=== PATIENT | female | born 1950 | race Caucasian/White ===

== ENCOUNTER → 2020-08-01 10:30 | Outpatient (CLI) | payer OTHER, SELFPAY ==
--- NOTE | ~2020-08-01 | DEXA_ITS ---
Bone Density Report Name: Sonya Acevedo Age: 69 Sex: Female Ethnicity: White Date of : 1950 Indication: postmenopausal; screening for osteoporosis; height loss; Referring Provider: KENDRA, TANISHA Study: Bone densitometry was performed. Exam Date: August 01, 2020 Accession number: [id number] Bone Density: Region BMD T-score Z-score Classification AP Spine (L1-L4) 0.958 -0.8 1.1 Normal Femoral Neck (Left) 0.671 -1.6 0.1 Osteopenia Total Hip (Left) 0.805 -1.1 0.2 Osteopenia Femoral Neck (Right) 0.574 -2.5 -0.8 Osteoporosis Total Hip (Right) 0.713 -1.9 -0.5 Osteopenia Total Hip Mean 0.759 -1.5 -0.2 Osteopenia World Health Organization criteria for BMD impression classify patients as: Normal (T-score at or above -1.0), Osteopenia (T-score between -1.0 and -2.5), or Osteoporosis (T-score at or below -2.5). 10-year Fracture Risk: FRAX not reported because: Some T-score for Spine Total or Hip Total or Femoral Neck at or below -2.5 Previous Exams: Region Exam Age BMD T-score BMD Change BMD Change Date g/cm2 vs Baseline vs Previous AP Spine(L1-L4) 08/01/2020 69 0.958 -0.8 -0.087* -0.087* 12/25/2007 57 1.046 0.0 Total Hip(Left) 08/01/2020 69 0.805 -1.1 -0.076* -0.076* 12/25/2007 57 0.881 -0.5 Total Hip(Right) 08/01/2020 69 0.713 -1.9 -0.142* -0.142* 12/25/2007 57 0.855 -0.7 *Denotes significance at 95% confidence level, LSC for AP Spine = 0.022 g/cm2, LSC for Total Hip = 0.027 g/cm2 Clinical Information Provided by Patient: Patient maximum height was 64 Menopause Age: 52 Does not regularly consume dairy products Drinks caffeinated beverages Onset of menses at age 14 Number of children 1 Impression: The patient has osteoporosis, based on the Right Femoral Neck T-score. The BMD for the AP Spine(L1-L4) decreased, changing by -0.087 since the last DXA exam. The BMD for the Total Hip(Left) decreased, changing by -0.076 since the last DXA exam. The BMD for the Total Hip(Right) decreased, changing by -0.142 since the last DXA exam. Discussion: INCREASED RISK OF FRACTURE. BONE DENSITY IS UNDESIRABLY LOW AT ONE OR MORE SKELETAL SITES, CONSISTENT WITH POSTMENOPAUSAL OSTEOPOROSIS. This patient's lowest T-score meets the World Health Organization's (WHO) criteria for osteoporosis at one or more sites (T-score -2.5 or below). In untreated patients, the risk of osteoporotic fracture inc
--- NOTE | ~2020-08-01 | MM_ITS ---
EXAMINATION: MM screening [facility] BI w des HISTORY: Screening TECHNIQUE: Craniocaudal and mediolateral oblique 3-D tomosynthesis images were obtained and synthetic 2-D images were generated. CAD analysis was submitted and interpreted. COMPARISON: Comparison to multiple prior studies sequentially, with oldest reviewed study dated 04/17. BREAST PARENCHYMAL COMPOSITION: There are scattered areas of fibroglandular density. FINDINGS: There is a cluster of calcifications in the upper outer quadrant of the left breast with as sociated tissue markers, consistent with site of previous benign stereotactic biopsy. No new masses, calcifications or architectural distortion are identified in either breast to suggest malignancy. IMPRESSION: 1. No mammographic evidence for malignancy. Tissue markers present in the upper outer quadrant of the left breast, consistent with previous benign biopsy. 2. Recommend routine screening mammography in one year. BI-RADS Category 2: Benign finding(s). Reviewed, dictated and finalized at location A. ONAL MARKETING DIRECTOR
== END ==
PROVIDERS: PCP Physician Assistant; Visit Provider Physician Assistant
DX: Z12.31 Encounter for screening mammogram for malignant neoplasm of breast (principal); Z78.0 Asymptomatic menopausal state; M85.852 Other specified disorders of bone density and structure, left thigh; M85.851 Other specified disorders of bone density and structure, right thigh; M81.0 Age-related osteoporosis without current pathological fracture
CPT/HCPCS: 77063; 77067; 77080

== ENCOUNTER → 2021-02-28 17:07 | Outpatient (CLI) | payer OTHER, SELFPAY ==
--- NOTE | ~2021-02-28 | XR_ITS ---
XR lumbar spine 2-3V DATE: 02/28/2021 18:44 INDICATION: Acute bilateral low back pain TECHNIQUE: AP, lateral, coned lateral lumbosacral views COMPARISON: 07/14/2015 lumbar spine FINDINGS: There is diffuse osteopenia. No fracture or bone destruction. Included lower thoracic and lumbar pedicles are intact. There is severe degenerative disc disease at L5-S1. There is moderate degenerative disease at L4-5. There is prominent degenerative change at the apophyseal joints in the mid and lower lumbar and lumbo sacral area with associated grade 1 anterolisthesis at L3-4 and L4-5. The sacroiliac joints appear normal. Status post cholecystectomy. There is a prominent amount of fecal material in the colon. IMPRESSION: Diffuse osteopenia Degenerative disc disease at L4-5 and particularly L5-S1 Prominent degenerative change at the apophyseal joints with associated grade 1 anterolisthesis at L3- 4 and L4-5 Reviewed, dictated and finalized at location A. IMPRESSION: Diffuse osteopenia Degenerative disc disease at L4-5 and particularly L5-S1 Prominent degenerative change at the apophyseal joints with associated grade 1 anterolisthesis at L3-4 and L4-5
== END ==
PROVIDERS: PCP Physician Assistant; Visit Provider Physician Assistant
DX: M54.5 Low back pain (principal); M85.88 Other specified disorders of bone density and structure, other site; M51.36 Other intervertebral disc degeneration, lumbar region
CPT/HCPCS: 72100

== ENCOUNTER → 2021-11-23 10:33 | Outpatient (CLI) | payer OTHER, SELFPAY ==
--- NOTE | ~2021-11-23 | MM_ITS ---
EXAMINATION: MM screening [facility] BI w des HISTORY: Screening mammogram TECHNIQUE: Craniocaudal and mediolateral oblique 3-D tomosynthesis images were obtained and synthetic 2-D images were generated. CAD analysis was submitted and interpreted. COMPARISON: 08/01/2020, 04/12/2019, 03/25/2019, 03/19/2017 BREAST PARENCHYMAL COMPOSITION: There are scattered areas of fibroglandular density. FINDINGS: Scattered benign-appearing calcifications are present. There is no suspicious mass, calcifi cation, or architectural distortion to suggest malignancy in either breast. There has been no suspici ous interval change. IMPRESSION: 1. No mammographic evidence of malignancy. 2. Recommend routine screening mammography in one year. BI-RADS Category 2: Benign finding(s). Reviewed, dictated and finalized at location A.
== END ==
PROVIDERS: PCP Physician Assistant; Visit Provider Physician Assistant
DX: Z12.31 Encounter for screening mammogram for malignant neoplasm of breast (principal)
CPT/HCPCS: 77063; 77067

== ENCOUNTER 2022-04-17 15:34 | Emergency (ER) | payer OTHER, SELFPAY ==
[2022-04-17 16:15] VITALS: BP 159/106; PULSE 80; RESP 18; TEMP 36.7; O2SAT 98
--- NOTE | 2022-04-17 16:39 | ED.URI ---
HPI - URI/Sore Throat General Chief Complaint: Upper Respiratory Infection Stated Complaint: sorethroat,headache,runny nose Time Seen by Provider: 04/17/22 16:39 Source: patient Mode of arrival: ambulatory Limitations: no limitations History of Present Illness HPI Narrative: 71-year-old female presents with complaint of itchy eyes and watery eyes, nasal congestion, postnasal drainage, sore throat, cough for 1 week. Reports that sinus congestion sinus pressure getting worse. Is taking Zyrtec, Flonase with no relief. Also tried Afrin. Afebrile. Called her primary care physician today and he suggested COVID, RSV, influenza and strep testing. Patient denies chest pain and shortness of breath. No nausea vomiting all systems reviewed and negative except as noted above. Related Data Home Medications Medication Instructions Recorded Confirmed amlodipine 10 mg tablet 10 mg DAILY 04/17/22 04/17/22 cyanocobalamin (vitamin B-12) 500 500 mcg PO DAILY 04/17/22 04/17/22 mcg tablet diclofenac sodium 1 % topical gel 1 g topical DAILY 04/17/22 04/17/22 ergocalciferol (vitamin D2) 50 mcg 50 mcg PO DAILY 04/17/22 04/17/22 (2,000 unit) capsule fluticasone propionate 50 1 spray intranasal DAILY 04/17/22 04/17/22 mcg/actuation nasal spray,suspension lansoprazole 30 mg capsule,delayed 30 mg BID 04/17/22 04/17/22 release loratadine 10 mg tablet 10 mg PO DAILY 04/17/22 04/17/22 romosozumab-aqqg 105 mg/1.17 mL 210 mg subcut ONCE 04/17/22 04/17/22 subcutaneous syringe (Evenity) Allergies Allergy/AdvReac Type Severity Reaction Status Date / Time erythromycin base Allergy Mild Rash Verified 04/17/22 16:40 iodine Allergy Hives Verified 04/17/22 16:40 Review of Systems Review of Systems: CONSTITUTIONAL: Denies fever, chills, or sweats. EYES: Denies visual changes, redness, or discharge. ENT: Reports rhinorrhea, congestion, sore throat, , sinus pressure. CARDIOVASCULAR: Denies chest pain, palpitations, or edema. RESPIRATORY: Reports cough. Denies dyspnea. GASTROINTESTINAL: Denies abdominal pain, nausea, vomiting, or diarrhea. GENITOURINARY: Denies dysuria or hematuria. SKIN: Denies rash or itching. MUSCULOSKELETAL: Denies back pain, joint pain, or myalgia. NEUROLOGIC: Denies headache, numbness, or weakness. PSYCHIATRIC: Denies anxiety or depression. All other systems reviewed are negative, except as documented in HPI. PMFSH Comments At time of signature, agree with nursing past medical, surgical, social and family history. There is no relevant family history pertinent to the presenting complaint. Exam Narrative: GENERAL: This is a well-nourished, well-developed patient. Patient is ill-appearing But in no distress. HEAD: normocephalic, atraumatic. EYES: PERRL. Sclera clear/white. Bilateral conjunctivae erythematous. Vision is grossly intact. EARS: External ears normal, auditory canals clear and without drainage, Fluid bilateral TMs. No perforation. No erythema. NOSE: External nose normal with Clear nasal drainage, moderate congestion, erythema to both nares with swelling. Frontal and maxillary sinus tenderness bilaterally. THROAT: Mucous membranes moist, Clear postnasal drainage, mild erythema. NECK: Neck supple, non-tender without lymphadenopathy, masses or thyromegaly. CARDIOVASCULAR: Regular rate and rhythm without murmurs, gallops, or rubs. RESPIRATORY: Clear to auscultation. Breath sounds equal bilaterally. No wheezes, rales, or rhonchi. SKIN: warm, Dry, intact with no suspicious lesions or rash, good texture and turgor. NEURO: awake, alert, and oriented to person, place and time. There were no obvious focal neurologic abnormalities. EXTREMITIES: No joint tenderness, effusion, or edema noted. Course Course Level of Care: Express Care Visit Vital Signs Vital signs: Vital Signs Temperature 36.7 C 04/17/22 16:15 Pulse Rate 80 04/17/22 16:15 Respiratory Rate 18 04/17/22 16:15 Blood
== END 2022-04-17 17:03 | disposition home or self-care (01) ==
PROVIDERS: Emergency Provider Nurse Practitioner Family; PCP Physician Assistant
DX: J01.90 Acute sinusitis, unspecified (principal); Z20.822 Contact with and (suspected) exposure to COVID-19; I10 Essential (primary) hypertension
CPT/HCPCS: 87081; 87420; 87426; 87804; 87880; 99213; C9803; G0463

== ENCOUNTER 2022-05-18 13:40 | Emergency (ER) | payer OTHER, SELFPAY ==
--- NOTE | ~2022-05-18 | XR_ITS ---
EXAMINATION: XR chest 2V 05/18/2022 14:09 INDICATION: Cough with shortness of breath. PROCEDURE: 2 view chest COMPARISON: 02/22/2019 FINDINGS: The lungs are clear. The cardiomediastinal silhouette is within normal limits. There are no pleural effusions. There is no pneumothorax suspected. There are cholecystectomy clips. IMPRESSION: 1: NO ACUTE CARDIOPULMONARY DISEASE. Reviewed, dictated and finalized at location A. DESK REP
[2022-05-18 13:55] VITALS: BP 153/89; PULSE 81; RESP 20; TEMP 36.6; O2SAT 97
--- NOTE | 2022-05-18 14:43 | ED.URI ---
HPI - URI/Sore Throat General Chief Complaint: Upper Respiratory Infection Stated Complaint: Shortness of Breath,Congestion Time Seen by Provider: 05/18/22 14:30 Source: patient Mode of arrival: ambulatory Limitations: no limitations History of Present Illness HPI Narrative: [age] year female presents with complaint of fatigue, body aches, cough, headache for 4 days. Today she took a COVID test at home that was positive. She called her primary care doctor to call her in the [facility] but stated that she needed to have her breathing Checked prior to getting this medication. patient denies shortness of breath. Reports that she has some chest pain with coughing. Afebrile. Denies nausea vomiting diarrhea. States that she got COVID from her . she is COVID vaccinated. She is alert and talkative. Well appearing. She also reports pain, swelling, redness to left upper eyelid. Thinks that she has a stye. All systems reviewed and negative except as noted above. Related Data Home Medications Medication Instructions Recorded Confirmed amlodipine 10 mg tablet 10 mg DAILY 04/17/22 05/18/22 cyanocobalamin (vitamin B-12) 500 500 mcg PO DAILY 04/17/22 05/18/22 mcg tablet diclofenac sodium 1 % topical gel 1 g topical DAILY 04/17/22 05/18/22 ergocalciferol (vitamin D2) 50 mcg 50 mcg PO DAILY 04/17/22 05/18/22 (2,000 unit) capsule fluticasone propionate 50 1 spray intranasal DAILY 04/17/22 05/18/22 mcg/actuation nasal spray,suspension lansoprazole 30 mg capsule,delayed 30 mg BID 04/17/22 05/18/22 release loratadine 10 mg tablet 10 mg PO DAILY 04/17/22 05/18/22 Allergies Allergy/AdvReac Type Severity Reaction Status Date / Time erythromycin base Allergy Mild Rash Verified 05/18/22 14:12 iodine Allergy Hives Verified 05/18/22 14:12 Review of Systems Review of Systems: CONSTITUTIONAL: Denies fever, chills, or sweats. EYES: Denies visual changes, redness, or discharge. redness, swelling left upper eyelid. ENT: Report rhinorrhea, congestion. Denies sore throat, or otalgia. CARDIOVASCULAR: Denies chest pain, palpitations, or edema. RESPIRATORY: report cough . Denies dyspnea. GASTROINTESTINAL: Denies abdominal pain, nausea, vomiting, or diarrhea. GENITOURINARY: Denies dysuria or hematuria. SKIN: Denies rash or itching. MUSCULOSKELETAL: Denies back pain, joint pain, or myalgia. NEUROLOGIC: Denies headache, numbness, or weakness. PSYCHIATRIC: Denies anxiety or depression. All other systems reviewed are negative, except as documented in HPI. PMFSH Comments At time of signature, agree with nursing past medical, surgical, social and family history. There is no relevant family history pertinent to the presenting complaint. Exam Narrative: GENERAL: This is a well-nourished, well-developed patient, in no apparent distress. HEAD: normocephalic, atraumatic. EYES: PERRL. Sclera clear/white. Vision is grossly intact. EARS: External ears normal, auditory canals clear and without drainage, TMs normal without perforation. Hearing grossly intact. NOSE: External nose normal with Clear nasal drainage, erythema to both nares without swelling. THROAT: Mucous membranes moist, posterior pharynx clear. NECK: Neck supple, non-tender without lymphadenopathy, masses or thyromegaly. CARDIOVASCULAR: Regular rate and rhythm without murmurs, gallops, or rubs. RESPIRATORY: Clear to auscultation. Breath sounds equal bilaterally. No wheezes, rales, or rhonchi. SKIN: warm, Dry, intact with no suspicious lesions or rash, good texture and turgor. Erythema, swelling to left upper eyelid with white head consistent with a stye. NEURO: awake, alert, and oriented to person, place and time. There were no obvious focal neurologic abnormalities. EXTREMITIES: No joint tenderness, effusion, or edema noted. Course Course Level of Care: Express Care Visit Vital Signs Vital signs: Vital Signs Temperature 36.6 C 05/18/22 13:55 Pulse
== END 2022-05-18 14:44 | disposition home or self-care (01) ==
PROVIDERS: Emergency Provider Nurse Practitioner Family; PCP Physician Assistant
DX: U07.1 COVID-19 (principal); H00.014 Hordeolum externum left upper eyelid; I10 Essential (primary) hypertension; K21.9 Gastro-esophageal reflux disease without esophagitis; Z98.84 Bariatric surgery status; Z85.820 Personal history of malignant melanoma of skin
CPT/HCPCS: 71046; 99213; G0463

== ENCOUNTER → 2022-09-09 17:19 | Outpatient (CLI) | payer OTHER, SELFPAY ==
--- NOTE | ~2022-09-09 | XR_ITS ---
EXAMINATION: XR chest 2V DATE: 09/09/2022 17:34 INDICATION: Shortness of breath. TECHNIQUE: Frontal and lateral views of the chest were obtained. COMPARISON: Chest 2 views 05/18/2022 FINDINGS: The chest demonstrates clear lungs without pneumonia, pleural effusion, or pneumothorax. Th e heart size is normal. Surgical clips in the right upper quadrant are likely from cholecystectomy. IMPRESSION: 1. No acute cardiopulmonary disease. Reviewed, dictated and finalized at location A.
== END ==
PROVIDERS: PCP Physician Assistant; Visit Provider Physician Assistant
DX: R06.02 Shortness of breath (principal)
CPT/HCPCS: 71046

== ENCOUNTER → 2023-01-07 16:19 | Outpatient (CLI) | payer OTHER, SELFPAY ==
--- NOTE | ~2023-01-07 | XR_ITS ---
XR foot RT min 3V 01/07/2023 16:42 Indication: Right first toe pain after recent injury Procedure: 4 views right foot Comparison: No prior studies for comparison. 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 Osteopenia. No acute fractu re or traumatic malalignment. There are degenerative calcaneal enthesophytes. Impression: 1: No acute fracture. Reviewed, dictated and finalized at location A. Impression: 1: No acute fracture.
== END ==
PROVIDERS: PCP Physician Assistant; Visit Provider Physician Assistant
DX: S99.921A Unspecified injury of right foot, initial encounter (principal); X58.XXXA Exposure to other specified factors, initial encounter
CPT/HCPCS: 73630

== ENCOUNTER → 2023-02-28 07:45 | Outpatient (CLI) | payer OTHER, SELFPAY ==
--- NOTE | ~2023-02-28 | XR_ITS ---
Right Shoulder Technique: AP and axillary views were obtained. Clinical History: Pain Findings: No fracture or dislocation is seen. Osseous alignment is anatomic. There is [id number] e AC joint degenerative change. There is mild glenohumeral joint degenerative change. Soft tissues ar e unremarkable. Impression: Degenerative changes, as above. Reviewed, dictated and finalized at location M. Impression: Degenerative changes, as above.
--- NOTE | ~2023-02-28 | XR_ITS ---
Lumbosacral Spine: AP and lateral views Clinical History: Pain COMPARISON: 02/28/2021 Findings: The normal lordotic curve is maintained. No acute fracture seen. 4 mm anterolisthesis of L3 over L4 is similar to prior exam. 3 mm anterolisthesis of L4 over L5 is similar to prior exam. Advan warren facet arthropathy throughout the lumbar spine is present. There is moderate degenerative disc sophy rowing at L5-S1. The sacroiliac joints are normally outlined. Impression: Moderate to advanced degenerative spondylosis, similar to prior exam. 4 mm anterolisthesis of L3 over L4, similar to prior exam. 3 mm anterolisthesis of L4 over L5, similar to prior exam. Reviewed, dictated and finalized at location . Impression: Moderate to advanced degenerative spondylosis, similar to prior exam. 4 mm anterolisthesis of L3 over L4, similar to prior exam. 3 mm anterolisthesis of L4 over L5, similar to prior exam.
--- NOTE | ~2023-02-28 | XR_ITS ---
EXAMINATION: XR hip RT min 2V DATE: 02/28/2023 08:11 INDICATION: Right hip pain. TECHNIQUE: 2 views of right hip were obtained. COMPARISON: None. FINDINGS: Bone alignment is normal. No fracture. There is mild right hip osteoarthritis. IMPRESSION: 1. Mild right hip osteoarthritis. Reviewed, dictated and finalized at location A.
== END ==
PROVIDERS: PCP Physician Assistant; Visit Provider Physician Assistant
DX: M25.551 Pain in right hip (principal); M54.50 Low back pain, unspecified; M25.511 Pain in right shoulder; M43.06 Spondylolysis, lumbar region; M16.11 Unilateral primary osteoarthritis, right hip
CPT/HCPCS: 72100; 73030; 73502

== ENCOUNTER → 2023-05-01 13:13 | Outpatient (CLI) | payer OTHER, SELFPAY ==
--- NOTE | ~2023-05-01 | MM_ITS ---
EXAMINATION: MM screening [facility] BI w des HISTORY: Screening mammogram TECHNIQUE: Craniocaudal and mediolateral oblique 3-D tomosynthesis images were obtained and synthetic 2-D images were generated. CAD analysis was submitted and interpreted. COMPARISON: 11/23/2021, 08/01/2020, 04/04/2019, 03/25/2019 BREAST PARENCHYMAL COMPOSITION: There are scattered areas of fibroglandular density. FINDINGS: Scattered benign-appearing calcifications are present. No suspicious mass, calcification, o r architectural distortion are identified in either breast to suggest malignancy. There has been no s uspicious interval change. IMPRESSION: 1. No mammographic evidence of malignancy. 2. Recommend routine screening mammography in one year. BI-RADS Category 2: Benign finding(s). Reviewed, dictated and finalized at location A. ISH RUBBER
--- NOTE | ~2023-05-01 | DEXA_ITS ---
Bone Density Report Name: DHARMESH MILLAN Age: 72 Sex: Female Ethnicity: White Date of : 1950 Indication: osteopenia; height loss; history of glucocorticoids;postmenopausal Referring Provider: KENDRA, TANISHA Study: Bone densitometry was performed. Exam Date: May 01, 2023 Accession number: [id number] Bone Density: Region BMD T-score Z-score Classification AP Spine (L1-L4) 0.913 -1.2 0.9 Osteopenia Femoral Neck (Left) 0.621 -2.1 -0.2 Osteopenia Total Hip (Left) 0.818 -1.0 0.5 Normal Femoral Neck (Right) 0.542 -2.8 -1.0 Osteoporosis Total Hip (Right) 0.680 -2.1 -0.6 Osteopenia Total Hip Mean 0.749 -1.6 -0.1 Osteopenia World Health Organization criteria for BMD impression classify patients as: Normal (T-score at or above -1.0), Osteopenia (T-score between -1.0 and -2.5), or Osteoporosis (T-score at or below -2.5). 10-year Fracture Risk: FRAX not reported because: Some T-score for Spine Total or Hip Total or Femoral Neck at or below -2.5 Previous Exams: Region Exam Age BMD T-score BMD Change BMD Change Date g/cm2 vs Baseline vs Previous AP Spine(L1-L4) 05/01/2023 72 0.913 -1.2 -0.133* -0.046* 08/01/2020 69 0.958 -0.8 -0.087* -0.087* 12/25/2007 57 1.046 0.0 Total Hip(Left) 05/01/2023 72 0.818 -1.0 -0.063* 0.013 08/01/2020 69 0.805 -1.1 -0.076* -0.076* 12/25/2007 57 0.881 -0.5 Total Hip(Right) 05/01/2023 72 0.680 -2.1 -0.175* -0.033* 08/01/2020 69 0.713 -1.9 -0.142* -0.142* 12/25/2007 57 0.855 -0.7 *Denotes significance at 95% confidence level, LSC for AP Spine = 0.022 g/cm2, LSC for Total Hip = 0.027 g/cm2 Clinical Information Provided by Patient: Has taken Glucocorticoids Has used the following medications: Vitamin D, MULTI VIT Patient maximum height was 64.5 Menopause Age: 52 Does not regularly consume dairy products Drinks caffeinated beverages Onset of menses at age 14 Number of children 1 Impression: The patient has osteoporosis, based on the Right Femoral Neck T-score. The patient has risk factors, including: history of glucocorticoid therapy. The BMD for the AP Spine(L1-L4) decreased, changing by -0.046 since the last DXA exam. The BMD for the Total Hip(Right) decreased, changing by -0.033 since the last DXA exam. Discussion: INCREASED RISK OF FRACTURE. BONE DENSITY IS UNDESIRABLY LOW AT ONE OR MORE S
== END ==
PROVIDERS: PCP Physician Assistant; Visit Provider Physician Assistant
DX: Z12.31 Encounter for screening mammogram for malignant neoplasm of breast (principal); Z78.0 Asymptomatic menopausal state; M85.88 Other specified disorders of bone density and structure, other site; M85.852 Other specified disorders of bone density and structure, left thigh; M85.851 Other specified disorders of bone density and structure, right thigh; M81.0 Age-related osteoporosis without current pathological fracture
CPT/HCPCS: 77063; 77067; 77080

== ENCOUNTER 2024-07-01 07:32 | Outpatient (CLI) | payer OTHER, SELFPAY ==
--- NOTE | ~2024-07-01 | MM_ITS ---
EXAMINATION: MM screening [facility] BI w des HISTORY: Screening mammogram TECHNIQUE: Craniocaudal and mediolateral oblique 3-D tomosynthesis images were obtained and synthetic 2-D images were generated. CAD analysis was submitted and interpreted. COMPARISON: 05/01/2023, 11/23/2021, 08/01/2020 BREAST PARENCHYMAL COMPOSITION:Not Dense. There are scattered areas of fibroglandular density. FINDINGS: No suspicious mass, calcification, or architectural distortion are identified in either marivel ast to suggest malignancy. There has been no suspicious interval change. IMPRESSION: No mammographic evidence of malignancy. Recommend routine screening mammography in one year. BI-RADS Category 1: Negative Reviewed, dictated and finalized at location . [employer]
== END 2024-07-01 07:33 | disposition home or self-care (01) ==
LOC: MICIMG 07:33
PROVIDERS: PCP Physician Assistant; Visit Provider Physician Assistant
DX: Z12.31 Encounter for screening mammogram for malignant neoplasm of breast (principal)
CPT/HCPCS: 77063; 77067

== ENCOUNTER 2024-09-13 11:44 | Outpatient (CLI) | payer OTHER, SELFPAY ==
--- NOTE | ~2024-09-13 | XR_ITS ---
[id number] 09/13/2024 11:59 Indication: Acute right knee pain Procedure: 2 views right knee Comparison: No prior studies for comparison. Findings: There is severe osteoarthritis of the right knee, most advanced in the medial compartment. No fracture or traumatic malalignment. No significant joint effusion. Impression: 1: Severe tricompartment osteoarthritis. Reviewed, dictated and finalized at location A. Impression: 1: Severe tricompartment osteoarthritis.
== END 2024-09-13 11:45 | disposition home or self-care (01) ==
PROVIDERS: PCP Physician Assistant; Visit Provider Physician Assistant
DX: M17.11 Unilateral primary osteoarthritis, right knee (principal)
CPT/HCPCS: 73560

== ENCOUNTER 2025-05-03 08:50 | Outpatient (CLI) | payer OTHER, SELFPAY ==
--- NOTE | ~2025-05-03 | DEXA_ITS ---
Bone Density Report Name: DHARMESH MILLAN Age: 74 Sex: Female Ethnicity: White Date of : 1950 Indication: osteopenia; height loss; cancer; Referring Provider: KENDRA, TANISHA Study: Bone densitometry was performed. Exam Date: May 03, 2025 Accession number: [id number] Bone Density: Region BMD T-score Z-score Classification AP Spine(L1-L4) 0.893 -1.4 0.8 Osteopenia Femoral Neck (Left) 0.703 -1.3 0.6 Osteopenia Total Hip (Left) 0.781 -1.3 0.3 Osteopenia Femoral Neck (Right) 0.600 -2.2 -0.3 Osteopenia Total Hip (Right) 0.657 -2.3 -0.7 Osteopenia Total Hip Mean 0.719 -1.8 -0.2 Osteopenia World Health Organization criteria for BMD impression classify patients as: Normal (T-score at or above -1.0), Osteopenia (T-score between -1.0 and -2.5), or Osteoporosis (T-score at or below -2.5). 10-year Fracture Risk(1): Major Osteoporotic Fracture 13% Hip Fracture 3.0% Reported Risk Factors: [place] (), Neck BMD=0.600, BMI=33.8 (1) FRAX(R) Version 3.08. Fracture probability calculated for an untreated patient. Fracture probability may be lower if the patient has received treatment. Previous Exams: -- Region Exam Age BMD T-score BMD Change BMD Change Date g/cm2 vs Baseline vs Previous -- AP Spine (L1-L4) 05/03/2025 74 0.893 -1.4 -14.6%* -2.1% 05/01/2023 72 0.913 -1.2 -12.7%* -4.8%* 08/01/2020 69 0.958 -0.8 -8.3%* -8.3%* 12/25/2007 57 1.046 0.0 Total Hip(Left) 05/03/2025 74 0.781 -1.3 -11.4%* -4.5%* 05/01/2023 72 0.818 -1.0 -7.2%* 1.6% 08/01/2020 69 0.805 -1.1 -8.6%* -8.6%* 12/25/2007 57 0.881 -0.5 Total Hip(Right) 05/03/2025 74 0.657 -2.3 -23.1%* -3.3% 05/01/2023 72 0.680 -2.1 -20.5%* -4.6%* 08/01/2020 69 0.713 -1.9 -16.6%* -16.6%* 12/25/2007 57 0.855 -0.7 -- *Denotes significance at 95% confidence level, LSC for AP Spine = 0.022 g/cm2, LSC for Total Hip = 0.027 g/cm2 Clinical Information Provided by Patient: Has used the following medications: Vitamin D Has the following medical conditions: Cancer, melanoma Patient maximum height was 65 Menopause Age: 52 No regular weight bearing exercise Does not regularly consume dairy products Onset of menses at age 15 Number of children 1 Impression: The patient has low bone mass, based on the Right Total Hip T-score. The patient has an estimated ten-year risk of hip fracture of 3% and an estimated ten-year risk of major fracture of 13%, based on the WHO FRAX algorithm. The BMD for the Total Hip(Left) decreased, changing by -4.5% since the last DXA exam. Discussion: BONE DENSITY IS LOW AT ONE OR MORE SKELETAL SITES. THE PATIENT'S BMD AND CLINICAL RISK FACTORS CONTRIBUTE TO THIS PATIENT'S INCREASED RISK OF FRACTURE. This patient's lowest T-score is low at one or more skeletal sites. It meets the World Health Organization's (WHO) criteria for ?low bone mass? (T-score between -1.0 and -2.5). The patient's 10-year risk of hip fracture as calculated by FRAX exceeds the threshold where pharmacological therapy is recommended by the National Osteoporosis Foundation (NOF). However, all treatment decisions require clinical judgment and consideration of individual patient factors, including patient preferences, comorbidities, previous drug use, risk factors not captured in the FRAX model (e.g., frailty, falls, vitamin D deficiency, increased bone turnover, interval significant decline in bone density) and possible under or overestimation of fracture risk by FRAX. The patient should follow a healthful lifestyle (good nutrition with adequate calcium and vitamin D, and appropriate weight-bearing exercise). Follow-Up: Consider a repeat BMD and Vertebral Fracture Assessment (VFA) exam in 2 years or sooner if medically necessary, to reassess this patient's status. Reported by: GABBY on 05/03/2025 9:15:00 AM. Reviewed, dictated and finalized at location A.
== END 2025-05-03 08:51 | disposition home or self-care (01) ==
LOC: MICIMG 08:50
PROVIDERS: PCP Physician Assistant; Visit Provider Physician Assistant
DX: M85.89 Other specified disorders of bone density and structure, multiple sites (principal); Z78.0 Asymptomatic menopausal state
CPT/HCPCS: 77080

== ENCOUNTER → 2025-06-13 09:38 | Outpatient (CLI) | payer OTHER, SELFPAY ==
--- NOTE | ~2025-06-13 | XR_ITS ---
EXAMINATION: XR chest 2V 06/13/2025 09:53 INDICATION: Chest congestion and wheezing PROCEDURE: 2 view chest COMPARISON: Comparison to multiple prior studies sequentially, with oldest reviewed study dated 12/22/2015. FINDINGS: The lungs are clear. The cardiomediastinal silhouette is within normal limits. There are no pleural effusions. There is no pneumothorax suspected. IMPRESSION: 1: NO ACUTE CARDIOPULMONARY DISEASE. Reviewed, dictated and finalized at location O. [employer]
== END ==
LOC: EXPCRAD 09:42
PROVIDERS: PCP Physician Assistant; Visit Provider Physician Assistant
DX: R06.2 Wheezing (principal)
CPT/HCPCS: 71046